=== PATIENT | male | born 2000 | race African-American/Black ===

== ENCOUNTER 2022-04-03 10:44 | Inpatient (IN) | payer OTHER ==
[2022-04-03 11:27] LABS: #Basophils 0.1 thou/uL (0.0-0.2); #Eosinphils 0.1 thou/uL (0.0-0.7); #Lymphocytes 2.2 thou/uL (1.20-3.40); #Monocytes 0.3 thou/uL (0.11-0.59); #Neutrophils 6.6 thou/uL (1.40-6.50); %Basophils 0.7 % (0.0-1.0); %Eosinophils 0.8 % (0.0-10.0); %Lymphocytes 23.8 % (21.0-51.0); %Monocytes 2.9 % (0.0-10.0); %Neutrophils 71.7 % (42.0-75.0); Hemoglobin 16.1 g/dL (14.0-18.0); Mean Corpuscular HGB CONC 33.1 g/dL (32.0-36.0); Mean Corpuscular Hemoglobin 29.6 pg (27.0-31.0); Mean Corpuscular Volume 89.4 fL (78.0-98.0); Mean Platelet Volume 9.5 fL (7.4-10.4); Platelet Count 217 thou/uL (130-400); RBC Distribution Width 12.2 % (11.5-14.5); Red Blood Cell (RBC) Count 5.44 mill/uL (4.70-6.10); White Blood Cell (WBC) Count 9.2 thou/uL (4.8-10.8)
[2022-04-03 11:44] LABS: Bilirubin Negative (Negative); Blood, Urine Negative (Negative); Clarity Clear (Clear); Glucose, Urine (Dipstick) Greater than 1000 mg/dL (Negative); Ketone, Urine Greater than 150 mg/dL (Negative); Leukocyte Negative Leu/uL (Negative); Nitrite Negative (Negative); Protein, Urine (Dipstick) Negative (Neg-Trace); Specific Gravity, Urine 1.037 (1.002-1.036); Urobilinogen Normal mg/dL (Less than 2); pH, Urine 5.5 (5.0-9.0)
[2022-04-03] MEDS ORDERED: Ondansetron PF 4 MG/2 ML Vial ONE (11:53)
[2022-04-03 12:10] LABS: Actual Bicarbonate (HCO3v) 18 mEq/L (22-28); Base Excess -5.7 mEq/L (-2.0 to +3.0); Chloride (VBG) 94 mmol/L (98-106); Hemoglobin (Hb) 16.9 g/dL (13.2-17.3); Potassium (VBG) 4.78 mmol/L (3.70-5.30); Sodium 132.1 mmol/L (133-146); pH (venous) 7.37 (7.32-7.43)
[2022-04-03 12:14] LABS: Lipase 14 U/L (8-78); Phosphorus 3.7 mg/dL (2.3-4.7)
[2022-04-03 12:17] LABS: ALT (SGPT) 37 U/L (8-55); AST (SGOT) 36 U/L (5-34); Albumin 4.2 g/dL (3.5-5.0); Alkaline Phosphatase 123 U/L (40-110); Anion Gap 30 mmol/L (10-20); BUN (Urea Nitrogen) 14 mg/dL (8.9-20.6); Bilirubin, Total 1.4 mg/dL (0.2-1.2); Calc. Creatinine Clearance 0 mL/min (70-130); Calcium 9.5 mg/dL (7.8-10.44); Carbon Dioxide 16 mmol/L (22-29); Chloride 91 mmol/L (98-107); Estimated GFR 57; Globulin 3.1 g/dL (2.4-3.5); Glucose 631 mg/dL (70-105); Magnesium 1.9 mg/dL (1.6-2.6); Potassium 5.3 mmol/L (3.5-5.1); Protein, Total 7.3 g/dL (6.0-8.3); Sodium 132 mmol/L (136-145)
[2022-04-03] MEDS ORDERED: Dextrose 5% in Water 1,000 ML IV PRN ×2 (13:00→17:30)
[2022-04-03] MEDS ORDERED: HUMULIN R 100 UNITS in Sodium Chloride 0.9% 99 ML IVPB SCH (13:00)
[2022-04-03] MEDS ORDERED: Dextrose 50% Abboject 50 ML SYRINGE IVP PRN (13:00)
[2022-04-03 15:38] LABS: Anion Gap 26 mmol/L (10-20); BUN (Urea Nitrogen) 13 mg/dL (8.9-20.6); Calc. Creatinine Clearance 0 mL/min (70-130); Calcium 8.9 mg/dL (7.8-10.44); Carbon Dioxide 15 mmol/L (22-29); Chloride 98 mmol/L (98-107); Estimated GFR 71; Glucose 444 mg/dL (70-105); Potassium 4.2 mmol/L (3.5-5.1); Sodium 135 mmol/L (136-145)
[2022-04-03 17:19] VITALS: BMI 26.6
[2022-04-03] MEDS ORDERED: HUMULIN R 100 UNITS in Sodium Chloride 0.9% 100 ML IVPB SCH ×2 (17:30→17:45)
[2022-04-03] MEDS ORDERED: NS 0.9% w/ 20 MEQ KCL 1,000 ML/1,000 ML BAG IV PRN ×2 (17:30)
[2022-04-03] MEDS ORDERED: Dextrose 5 %-0.45 % NaCl 1,000 ML IV PRN ×2 (17:30→17:39)
[2022-04-03] MEDS ORDERED: Dextrose 50% Abboject 50 ML SYRINGE SLOW IVP PRN ×2 (17:30→17:45)
[2022-04-03] MEDS ORDERED: D5 1/2 NS w/20 mEq KCL 1,000 ML IV PRN ×2 (17:30→17:39)
[2022-04-03] MEDS ORDERED: Sodium Chloride 0.9% 1,000 ML IV PRN ×8 (17:30→17:39)
[2022-04-03] MEDS ORDERED: Electrolyte Replacement Protocol FS PRN ×2 (17:34→19:15)
[2022-04-03] MEDS ORDERED: NS 0.9% w/ 20 MEQ KCL 1,000 ML IV PRN ×2 (17:39)
[2022-04-03] MEDS ORDERED: Acetaminophen 325 MG TAB PO PRN (17:39)
[2022-04-03] MEDS ORDERED: Ondansetron ODT 4 MG TAB PO PRN (17:39)
[2022-04-03] MEDS ORDERED: Ondansetron PF 4 MG/2 ML Vial IVP PRN (17:39)
[2022-04-03] MEDS ORDERED: Electrolyte Replacement Protocol IVPB PRN (17:39)
[2022-04-03] MEDS ORDERED: NS 0.9% w/ 20 MEQ KCL 1,000 ML ONE (18:06)
[2022-04-03 19:06] LABS: Anion Gap 16 mmol/L (10-20); BUN (Urea Nitrogen) 13 mg/dL (8.9-20.6); Calc. Creatinine Clearance 100 mL/min (70-130); Calcium 8.5 mg/dL (7.8-10.44); Carbon Dioxide 23 mmol/L (22-29); Chloride 103 mmol/L (98-107); Estimated GFR 83; Glucose 272 mg/dL (70-105); Potassium 3.8 mmol/L (3.5-5.1); Sodium 138 mmol/L (136-145)
[2022-04-03] MEDS ORDERED: Potassium Chloride 20 MEQ TAB PO SCH (19:15)
[2022-04-03] MEDS ORDERED: Magnesium 2 GM/50 ML(in water) 2 GM in Premix Bag 1 BAG IVPB SCH (19:15)
[2022-04-03] MEDS ORDERED: Potassium Chloride 20 MEQ TAB ONE (19:51)
[2022-04-03] MEDS ORDERED: Insulin Glargine 30 UNITS/0.3 ML VIAL SC SCH (21:00)
[2022-04-03 22:23] LABS: Anion Gap 12 mmol/L (10-20); BUN (Urea Nitrogen) 12 mg/dL (8.9-20.6); Calc. Creatinine Clearance 111 mL/min (70-130); Calcium 8.4 mg/dL (7.8-10.44); Carbon Dioxide 25 mmol/L (22-29); Chloride 106 mmol/L (98-107); Estimated GFR 94; Glucose 142 mg/dL (70-105); Potassium 3.9 mmol/L (3.5-5.1); Sodium 139 mmol/L (136-145)
[2022-04-04] MEDS ORDERED: Dextrose 50% Abboject 50 ML SYRINGE IVP PRN (00:15)
[2022-04-04] MEDS ORDERED: Dextrose 5% in Water 1,000 ML IV PRN (00:15)
[2022-04-04] MEDS ORDERED: HumaLOG 300 UNITS/3 ML VIAL SC PRN (00:15)
[2022-04-04 01:46] LABS: Anion Gap 15 mmol/L (10-20); BUN (Urea Nitrogen) 11 mg/dL (8.9-20.6); Calc. Creatinine Clearance 110 mL/min (70-130); Calcium 8.7 mg/dL (7.8-10.44); Carbon Dioxide 19 mmol/L (22-29); Chloride 106 mmol/L (98-107); Estimated GFR 93; Glucose 133 mg/dL (70-105); Potassium 4.2 mmol/L (3.5-5.1); Sodium 136 mmol/L (136-145)
[2022-04-04] MEDS: HumaLOG 300 UNITS/3 ML VIAL SC PRN ×2 (06:16→12:25)
[2022-04-04 07:05] LABS: #Eosinphils 0.4 thou/uL (0.0-0.7); #Lymphocytes 3.1 thou/uL (1.20-3.40); #Monocytes 0.3 thou/uL (0.11-0.59); %Basophils 0.5 % (0.0-1.0); %Eosinophils 4.8 % (0.0-10.0); %Lymphocytes 35.3 % (21.0-51.0); %Monocytes 3.4 % (0.0-10.0); %Neutrophils 56.1 % (42.0-75.0); Hemoglobin 14.7 g/dL (14.0-18.0); Mean Corpuscular HGB CONC 31.9 g/dL (32.0-36.0); Mean Corpuscular Hemoglobin 28.7 pg (27.0-31.0); Mean Corpuscular Volume 90.2 fL (78.0-98.0); Mean Platelet Volume 9.3 fL (7.4-10.4); Platelet Count 203 thou/uL (130-400); RBC Distribution Width 12.3 % (11.5-14.5); White Blood Cell (WBC) Count 8.8 thou/uL (4.8-10.8)
[2022-04-04 07:28] LABS: Anion Gap 13 mmol/L (10-20); BUN (Urea Nitrogen) 13 mg/dL (8.9-20.6); Calc. Creatinine Clearance 99 mL/min (70-130); Calcium 8.7 mg/dL (7.8-10.44); Carbon Dioxide 24 mmol/L (22-29); Chloride 101 mmol/L (98-107); Estimated GFR 81; Glucose 419 mg/dL (70-105); Magnesium 1.9 mg/dL (1.6-2.6); Potassium 4.2 mmol/L (3.5-5.1); Sodium 134 mmol/L (136-145)
[2022-04-04] MEDS ORDERED: Magnesium 2 GM/50 ML(in water) 2 GM in Premix Bag 1 BAG IVPB SCH (09:45)
[2022-04-04] MEDS ORDERED: Insulin Glargine 30 UNITS/0.3 ML VIAL SC SCH (16:52)
[2022-04-04] MEDS: HumaLOG 300 UNITS/3 ML VIAL SC SCH (17:31)
[2022-04-04] MEDS ORDERED: Mag-Al 1200 mg/1200 mg/30 ML UDCUP PO PRN (23:40)
[2022-04-05 01:15] LABS: Troponin I Less than 0.010 ng/mL (< 0.028)
[2022-04-05 04:31] LABS: Anion Gap 12 mmol/L (10-20); BUN (Urea Nitrogen) 11 mg/dL (8.9-20.6); Calc. Creatinine Clearance 133 mL/min (70-130); Calcium 8.8 mg/dL (7.8-10.44); Carbon Dioxide 27 mmol/L (22-29); Chloride 102 mmol/L (98-107); Estimated GFR 117; Glucose 179 mg/dL (70-105); Magnesium 1.9 mg/dL (1.6-2.6); Potassium 3.1 mmol/L (3.5-5.1); Sodium 138 mmol/L (136-145); Troponin I Less than 0.010 ng/mL (< 0.028)
[2022-04-05 06:44] LABS: Troponin I 0.011 ng/mL (< 0.028)
[2022-04-05 07:25] VITALS: BP 114/72; TEMP 97.9
[2022-04-05] MEDS: HumaLOG 300 UNITS/3 ML VIAL SC SCH ×2 (07:47→11:53)
[2022-04-05] MEDS ORDERED: Magnesium 2 GM/50 ML(in water) 2 GM in Premix Bag 1 BAG IVPB SCH (08:00)
[2022-04-05] MEDS ORDERED: Potassium Chloride 20 MEQ in Premix Bag 1 BAG IVPB SCH ×3 (08:00→09:15)
[2022-04-05] MEDS ORDERED: Potassium Chloride 20 MEQ TAB PO SCH (08:00)
[2022-04-05 12:19] LABS: Anion Gap 10 mmol/L (10-20); BUN (Urea Nitrogen) 9 mg/dL (8.9-20.6); Calc. Creatinine Clearance 133 mL/min (70-130); Calcium 8.7 mg/dL (7.8-10.44); Carbon Dioxide 29 mmol/L (22-29); Chloride 103 mmol/L (98-107); Estimated GFR 117; Glucose 183 mg/dL (70-105); Potassium 3.6 mmol/L (3.5-5.1); Sodium 138 mmol/L (136-145)
[2022-04-05 14:10] LABS: Potassium 3.7 mmol/L (3.5-5.1)
== END 2022-04-05 13:55 | disposition home or self-care (01) | DRG 639 ==
LOC: ERS 10:44 → ERHOLD 13:21 → T4-B 04-04 00:15
PROVIDERS: ADMIT Internal Medicine; ATTEND Internal Medicine
DX: E10.10 Type 1 diabetes mellitus with ketoacidosis without coma (principal); J45.909 Unspecified asthma, uncomplicated; F20.9 Schizophrenia, unspecified; F31.9 Bipolar disorder, unspecified; Z79.4 Long term (current) use of insulin; Z79.899 Other long term (current) drug therapy
CPT/HCPCS: 36415; 36416; 80048; 80053; 81003; 82010; 82805; 83690; 83735; 84100; 84484; 85025; 93005; 93010; 94760; 96361; 96374; 96375; J1815; J2405; J3475; J3480; J3490; U0003; U0005

== ENCOUNTER 2022-04-21 10:18 | Inpatient (IN) | payer OTHER ==
[2022-04-21 11:07] LABS: Base Excess -19.5 mEq/L (-2.0 to +3.0); Calcium, Ionized (venous) 1.09 mmol/L (1.16-1.32); Chloride (VBG) 99 mmol/L (98-106); Hemoglobin (Hb) 17.1 g/dL (13.2-17.3); Potassium (VBG) 5.82 mmol/L (3.70-5.30); Sodium 133.9 mmol/L (133-146)
[2022-04-21] MEDS ORDERED: Ondansetron PF 4 MG/2 ML Vial ONE (11:07)
[2022-04-21] MEDS ORDERED: Insulin Regular 300 UNITS/3 ML VIAL ONE (11:07)
[2022-04-21 11:08] LABS: Actual Bicarbonate (HCO3v) 8 mEq/L (22-28); pH (venous) 7.12 (7.32-7.43)
[2022-04-21 11:18] LABS: #Basophils 0.1 thou/uL (0.0-0.2); #Lymphocytes 2.7 thou/uL (1.20-3.40); #Monocytes 0.7 thou/uL (0.11-0.59); #Neutrophils 11.5 thou/uL (1.40-6.50); %Basophils 0.6 % (0.0-1.0); %Eosinophils 0.2 % (0.0-10.0); %Lymphocytes 17.9 % (21.0-51.0); %Monocytes 4.4 % (0.0-10.0); %Neutrophils 76.8 % (42.0-75.0); Hemoglobin 16.8 g/dL (14.0-18.0); Mean Corpuscular HGB CONC 32.6 g/dL (32.0-36.0); Mean Corpuscular Hemoglobin 29.7 pg (27.0-31.0); Mean Corpuscular Volume 91.3 fL (78.0-98.0); Mean Platelet Volume 9.4 fL (7.4-10.4); Platelet Count 280 thou/uL (130-400); RBC Distribution Width 12.6 % (11.5-14.5); Red Blood Cell (RBC) Count 5.66 mill/uL (4.70-6.10)
[2022-04-21 11:21] LABS: Bilirubin Negative (Negative); Blood, Urine Negative (Negative); Clarity Clear (Clear); Glucose, Urine (Dipstick) Greater than 1000 mg/dL (Negative); Ketone, Urine Greater than 150 mg/dL (Negative); Leukocyte Negative Leu/uL (Negative); Nitrite Negative (Negative); Protein, Urine (Dipstick) Negative (Neg-Trace); Specific Gravity, Urine 1.028 (1.002-1.036); Urobilinogen Normal mg/dL (Less than 2)
[2022-04-21 12:05] LABS: Magnesium 2.2 mg/dL (1.6-2.6)
[2022-04-21] MEDS ORDERED: INSULIN REGULAR IN 0.9 % NACL 100 UNIT/100 ML BAG ONE (12:08)
[2022-04-21] MEDS ORDERED: HUMULIN R 100 UNITS in Sodium Chloride 0.9% 100 ML IVPB SCH ×2 (12:15→13:30)
[2022-04-21 12:42] LABS: Albumin 4.5 g/dL (3.5-5.0)
[2022-04-21 12:43] LABS: Chloride 95 mmol/L (98-107); Potassium 6.2 mmol/L (3.5-5.1); Sodium 135 mmol/L (136-145)
[2022-04-21 12:44] LABS: Calcium 9.6 mg/dL (7.8-10.44)
[2022-04-21 12:45] LABS: Protein, Total 8.5 g/dL (6.0-8.3)
[2022-04-21 12:46] LABS: Anion Gap 38 mmol/L (10-20); Bilirubin, Total 1.1 mg/dL (0.2-1.2)
[2022-04-21 12:48] LABS: Alkaline Phosphatase 128 U/L (40-110); Calc. Creatinine Clearance 0 mL/min (70-130); Estimated GFR 39
[2022-04-21 12:49] LABS: BUN (Urea Nitrogen) 19 mg/dL (8.9-20.6)
[2022-04-21 12:50] LABS: AST (SGOT) 32 U/L (5-34)
[2022-04-21 12:51] LABS: ALT (SGPT) 47 U/L (8-55)
[2022-04-21 12:55] LABS: Carbon Dioxide 8 mmol/L (22-29); Glucose 688 mg/dL (70-105)
[2022-04-21] MEDS ORDERED: NS 0.9% w/ 20 MEQ KCL 1,000 ML IV PRN ×2 (13:22)
[2022-04-21] MEDS ORDERED: Sodium Chloride 0.9% 1,000 ML IV PRN ×4 (13:22)
[2022-04-21] MEDS ORDERED: Electrolyte Replacement Protocol 1 EACH IVPB SCH (13:22)
[2022-04-21] MEDS ORDERED: Dextrose 5 %-0.45 % NaCl 1,000 ML IV PRN (13:22)
[2022-04-21] MEDS ORDERED: Ondansetron ODT 4 MG TAB PO PRN (13:28)
[2022-04-21 15:20] LABS: Anion Gap 29 mmol/L (10-20); BUN (Urea Nitrogen) 15 mg/dL (8.9-20.6); Calc. Creatinine Clearance 0 mL/min (70-130); Calcium 8.3 mg/dL (7.8-10.44); Chloride 104 mmol/L (98-107); Estimated GFR 54; Glucose 359 mg/dL (70-105); Potassium 4.5 mmol/L (3.5-5.1); Sodium 137 mmol/L (136-145)
[2022-04-21 15:22] LABS: Troponin I Less than 0.010 ng/mL (< 0.028)
[2022-04-21 15:26] LABS: Carbon Dioxide 9 mmol/L (22-29)
[2022-04-21] MEDS: Heparin 5,000 UNITS/ML VIAL SC SCH ×2 (17:44→20:15)
[2022-04-21 17:47] LABS: Anion Gap 24 mmol/L (10-20); BUN (Urea Nitrogen) 15 mg/dL (8.9-20.6); Calc. Creatinine Clearance 66 mL/min (70-130); Calcium 8.4 mg/dL (7.8-10.44); Carbon Dioxide 11 mmol/L (22-29); Chloride 108 mmol/L (98-107); Estimated GFR 59; Glucose 232 mg/dL (70-105); Potassium 4.6 mmol/L (3.5-5.1); Sodium 138 mmol/L (136-145)
[2022-04-21 17:53] LABS: Troponin I Less than 0.010 ng/mL (< 0.028)
[2022-04-21] MEDS: D5 1/2 NS w/20 mEq KCL 1,000 ML IV PRN ×2 (20:16→22:56)
[2022-04-21 21:55] LABS: Anion Gap 13 mmol/L (10-20); BUN (Urea Nitrogen) 12 mg/dL (8.9-20.6); Calc. Creatinine Clearance 73 mL/min (70-130); Calcium 8.2 mg/dL (7.8-10.44); Carbon Dioxide 20 mmol/L (22-29); Chloride 109 mmol/L (98-107); Estimated GFR 67; Glucose 176 mg/dL (70-105); Potassium 3.7 mmol/L (3.5-5.1); Sodium 138 mmol/L (136-145)
[2022-04-22] MEDS: D5 1/2 NS w/20 mEq KCL 1,000 ML IV PRN (02:48)
[2022-04-22 04:25] LABS: Anion Gap 11 mmol/L (10-20); BUN (Urea Nitrogen) 12 mg/dL (8.9-20.6); Calc. Creatinine Clearance 82 mL/min (70-130); Calcium 8.3 mg/dL (7.8-10.44); Carbon Dioxide 19 mmol/L (22-29); Chloride 111 mmol/L (98-107); Estimated GFR 77; Glucose 159 mg/dL (70-105); Potassium 3.6 mmol/L (3.5-5.1); Sodium 137 mmol/L (136-145)
[2022-04-22 04:31] LABS: Magnesium 1.9 mg/dL (1.6-2.6); Phosphorus 2.1 mg/dL (2.3-4.7)
[2022-04-22] MEDS: Heparin 5,000 UNITS/ML VIAL SC SCH ×3 (07:52→21:22)
[2022-04-22] MEDS ORDERED: Magnesium 2 GM/50 ML(in water) 2 GM in Premix Bag 1 BAG IVPB SCH (08:00)
[2022-04-22] MEDS: Aripiprazole 2 MG TAB PO SCH (08:18)
[2022-04-22] MEDS ORDERED: Insulin Regular 300 UNITS/3 ML VIAL SC PRN (08:36)
[2022-04-22] MEDS ORDERED: Dextrose 5% in Water 1,000 ML IV PRN (08:36)
[2022-04-22] MEDS ORDERED: Dextrose 50% Abboject 50 ML SYRINGE SLOW IVP PRN (08:36)
[2022-04-22] MEDS ORDERED: Sodium Phosphate 30 MMOL in Sodium Chloride 0.9% 250 ML 250 ML IVPB SCH (08:45)
[2022-04-22] MEDS: Insulin Glargine 30 UNITS/0.3 ML VIAL SC SCH (08:57)
[2022-04-22] MEDS ORDERED: Sodium Phosphate 15 MMOL in Sodium Chloride 0.9% 250 ML 250 ML IVPB SCH (09:00)
[2022-04-22] MEDS: HumaLOG 300 UNITS/3 ML VIAL SC SCH ×2 (12:06→16:58)
[2022-04-22] MEDS: Insulin Regular 300 UNITS/3 ML VIAL SC PRN ×2 (12:07→16:58)
[2022-04-22 14:59] VITALS: BMI 24.3
[2022-04-23] MEDS: Insulin Regular 300 UNITS/3 ML VIAL SC PRN ×2 (05:57→12:18)
[2022-04-23 06:40] LABS: #Basophils 0.1 thou/uL (0.0-0.2); #Eosinphils 0.2 thou/uL (0.0-0.7); #Lymphocytes 3.1 thou/uL (1.20-3.40); #Monocytes 0.3 thou/uL (0.11-0.59); %Basophils 1.1 % (0.0-1.0); %Eosinophils 3.1 % (0.0-10.0); %Lymphocytes 46.7 % (21.0-51.0); %Monocytes 4.5 % (0.0-10.0); %Neutrophils 44.6 % (42.0-75.0); Mean Corpuscular HGB CONC 33.3 g/dL (32.0-36.0); Mean Corpuscular Hemoglobin 29.3 pg (27.0-31.0); Mean Platelet Volume 8.7 fL (7.4-10.4); Platelet Count 231 thou/uL (130-400); RBC Distribution Width 12.4 % (11.5-14.5); Red Blood Cell (RBC) Count 4.78 mill/uL (4.70-6.10); White Blood Cell (WBC) Count 6.7 thou/uL (4.8-10.8)
[2022-04-23 06:47] LABS: Anion Gap 11 mmol/L (10-20); BUN (Urea Nitrogen) 11 mg/dL (8.9-20.6); Calc. Creatinine Clearance 116 mL/min (70-130); Calcium 8.2 mg/dL (7.8-10.44); Carbon Dioxide 24 mmol/L (22-29); Chloride 103 mmol/L (98-107); Estimated GFR 110; Glucose 228 mg/dL (70-105); Magnesium 1.7 mg/dL (1.6-2.6); Phosphorus 2.6 mg/dL (2.3-4.7); Potassium 3.1 mmol/L (3.5-5.1); Sodium 135 mmol/L (136-145)
[2022-04-23] MEDS ORDERED: Magnesium 2 GM/50 ML(in water) 2 GM in Premix Bag 1 BAG IVPB SCH (08:00)
[2022-04-23] MEDS ORDERED: Potassium Chloride 20 MEQ TAB PO SCH (08:00)
[2022-04-23 08:22] LABS: SARS-CoV-2 NAA Rapid Test Not Detected (NotDetected)
[2022-04-23] MEDS: Insulin Glargine 30 UNITS/0.3 ML VIAL SC SCH (09:10)
[2022-04-23] MEDS: HumaLOG 300 UNITS/3 ML VIAL SC SCH ×2 (09:15→12:14)
[2022-04-23] MEDS: Heparin 5,000 UNITS/ML VIAL SC SCH (09:16)
[2022-04-23 11:54] VITALS: TEMP 98
[2022-04-23] MEDS: Aripiprazole 2 MG TAB PO SCH (12:15)
[2022-04-23 15:17] VITALS: BP 130/70
== END 2022-04-23 16:30 | disposition home or self-care (01) | DRG 638 ==
LOC: ERS 10:18 → ERHOLD 13:31 → IMCU/EMU 16:31 → SURG B 04-22 17:48
PROVIDERS: ADMIT Family Medicine; ATTEND Family Medicine
DX: E10.10 Type 1 diabetes mellitus with ketoacidosis without coma (principal); N17.9 Acute kidney failure, unspecified; J45.909 Unspecified asthma, uncomplicated; E87.5 Hyperkalemia; F25.0 Schizoaffective disorder, bipolar type; E87.6 Hypokalemia; Z20.822 Contact with and (suspected) exposure to COVID-19; Z79.4 Long term (current) use of insulin; Z79.899 Other long term (current) drug therapy
CPT/HCPCS: 36415; 36416; 80048; 80053; 81003; 82010; 82805; 83735; 84100; 84484; 85025; 93005; 96361; 96365; 96366; 96375; 96376; J1644; J1815; J2405; J3475; J3480; J3490; J7050; U0002

== ENCOUNTER 2022-05-06 11:28 | Inpatient (IN) | payer OTHER ==
[2022-05-06] MEDS ORDERED: Insulin Regular 300 UNITS/3 ML VIAL ONE (11:50)
[2022-05-06] MEDS ORDERED: Ondansetron PF 4 MG/2 ML Vial ONE (11:50)
[2022-05-06] MEDS ORDERED: INSULIN REGULAR IN 0.9 % NACL 100 UNIT/100 ML BAG ONE (11:50)
[2022-05-06 12:09] LABS: Bilirubin Negative (Negative); Blood, Urine Negative (Negative); Clarity Clear (Clear); Glucose, Urine (Dipstick) Greater than 1000 mg/dL (Negative); Ketone, Urine Greater than 150 mg/dL (Negative); Leukocyte Negative Leu/uL (Negative); Nitrite Negative (Negative); Protein, Urine (Dipstick) 20 mg/dL (Neg-Trace); Specific Gravity, Urine 1.024 (1.002-1.036); Urobilinogen Normal mg/dL (Less than 2)
[2022-05-06 12:09] LABS: Hemoglobin 17.4 g/dL (14.0-18.0); Mean Corpuscular HGB CONC 30.9 g/dL (32.0-36.0); Mean Platelet Volume 8.4 fL (7.4-10.4); Platelet Count 420 thou/uL (130-400); Red Blood Cell (RBC) Count 5.82 mill/uL (4.70-6.10); White Blood Cell (WBC) Count 39.4 thou/uL (4.8-10.8)
[2022-05-06 12:19] LABS: INR-International Normal Ratio 1.1; Prothrombin Time 14.4 sec (12.0-14.7)
[2022-05-06 12:20] LABS: PTT 23.7 sec (22.9-36.1)
[2022-05-06 12:28] LABS: Band 11 % (5-11); Lymphocytes 9 % (21-51); MDiff Complete? YES; Metamyelocyte 3 % (0-0); Monocytes 4 % (0-10); Myelocyte 2 % (0-0); Neutrophil 71 % (42-75); Platelet Morphology Comment Appears Increased; RBC Morphology Normal
[2022-05-06 12:43] LABS: ALT (SGPT) 239 U/L (8-55); AST (SGOT) 196 U/L (5-34); Albumin 4.7 g/dL (3.5-5.0); Alkaline Phosphatase 198 U/L (40-110); BUN (Urea Nitrogen) 21 mg/dL (8.9-20.6); Bilirubin, Total 1.2 mg/dL (0.2-1.2); Calc. Creatinine Clearance 0 mL/min (70-130); Calcium 9.9 mg/dL (7.8-10.44); Chloride 91 mmol/L (98-107); Estimated GFR 39; Magnesium 2.5 mg/dL (1.6-2.6); Potassium 6.3 mmol/L (3.5-5.1); Protein, Total 8.7 g/dL (6.0-8.3); Sodium 135 mmol/L (136-145)
[2022-05-06 12:46] LABS: Carbon Dioxide Less than 8 mmol/L (22-29); Glucose 769 mg/dL (70-105)
[2022-05-06 13:23] LABS: Base Excess -27.4 mEq/L (-2.0 to +3.0); Calcium, Ionized (venous) 1.09 mmol/L (1.16-1.32); Chloride (VBG) 95 mmol/L (98-106); Hemoglobin (Hb) 18.5 g/dL (13.2-17.3); Potassium (VBG) 6.37 mmol/L (3.70-5.30); Sodium 136.9 mmol/L (133-146)
[2022-05-06 13:24] LABS: Actual Bicarbonate (HCO3v) 4 mEq/L (22-28); pH (venous) 6.92 (7.32-7.43)
[2022-05-06 15:01] LABS: Lactic Acid 9.5 mmol/L (0.5-2.2)
[2022-05-06] MEDS ORDERED: Electrolyte Replacement Protocol 1 EACH IVPB SCH (15:21)
[2022-05-06] MEDS ORDERED: Sodium Chloride 0.9% 1,000 ML IV PRN ×4 (15:21)
[2022-05-06] MEDS ORDERED: NS 0.9% w/ 20 MEQ KCL 1,000 ML IV PRN ×2 (15:21)
[2022-05-06] MEDS ORDERED: Dextrose 5 %-0.45 % NaCl 1,000 ML IV PRN (15:21)
[2022-05-06] MEDS ORDERED: HUMULIN R 100 UNITS in Sodium Chloride 0.9% 100 ML IVPB SCH (15:30)
[2022-05-06] MEDS ORDERED: Sodium Bicarb 50 MEQ/50 ML VIAL ONE ×2 (15:47→15:48)
[2022-05-06 16:10] LABS: Actual Bicarbonate (HCO3a) 10.9 mEq/L (22-28); Analyzer IN Cardio ER; Base Excess (BEa) -12.2 mEq/L (-2.0 to +3.0); Calcium, Ionized (arterial) 1.08 mmol/L (1.12-1.30); Carboxyhemoglobin (COHb) 0.2 gm% (0.0-3.0); Hemoglobin (Hb) 14.5 g/dL (14.0-18.0); O2 Tension (PaO2), arterial 95.6 mmHg (80.0-100.0); Potassium - ABG Lab 3.94 mmol/L (3.70-5.30); pH, Arterial 7.35 (7.35-7.45)
[2022-05-06 16:12] LABS: CO2 Tension 20.2 mmHg (35.0-45.0); Puncture Site RRA
[2022-05-06] MEDS ORDERED: Albuterol Sulfate 2.5 mg/3 ml Neb NEB PRN (16:42)
[2022-05-06] MEDS ORDERED: Ondansetron PF 4 MG/2 ML Vial IVP PRN (17:25)
[2022-05-06] MEDS ORDERED: Pantoprazole 40 MG VIAL IVP SCH (17:30)
[2022-05-06 18:04] LABS: Anion Gap 28 mmol/L (10-20); BUN (Urea Nitrogen) 17 mg/dL (8.9-20.6); Calc. Creatinine Clearance 0 mL/min (70-130); Carbon Dioxide 11 mmol/L (22-29); Chloride 106 mmol/L (98-107); Estimated GFR 60; Glucose 243 mg/dL (70-105); Magnesium 2.1 mg/dL (1.6-2.6); Phosphorus 2.7 mg/dL (2.3-4.7); Potassium 4.5 mmol/L (3.5-5.1); Sodium 140 mmol/L (136-145)
[2022-05-06] MEDS: D5 1/2 NS w/20 mEq KCL 1,000 ML IV PRN ×2 (18:12→21:15)
[2022-05-06 18:40] VITALS: BMI 22.4
[2022-05-06 20:04] LABS: Anion Gap 21 mmol/L (10-20); BUN (Urea Nitrogen) 15 mg/dL (8.9-20.6); Calc. Creatinine Clearance 70 mL/min (70-130); Calcium 7.7 mg/dL (7.8-10.44); Carbon Dioxide 15 mmol/L (22-29); Chloride 108 mmol/L (98-107); Estimated GFR 66; Glucose 186 mg/dL (70-105); Potassium 4.1 mmol/L (3.5-5.1); Sodium 140 mmol/L (136-145)
[2022-05-06 21:22] LABS: Lactic Acid 3.8 mmol/L (0.5-2.2)
[2022-05-07 00:17] LABS: Anion Gap 11 mmol/L (10-20); BUN (Urea Nitrogen) 12 mg/dL (8.9-20.6); Calc. Creatinine Clearance 84 mL/min (70-130); Calcium 7.9 mg/dL (7.8-10.44); Carbon Dioxide 22 mmol/L (22-29); Chloride 109 mmol/L (98-107); Estimated GFR 82; Glucose 124 mg/dL (70-105); Potassium 3.4 mmol/L (3.5-5.1); Sodium 139 mmol/L (136-145)
[2022-05-07] MEDS ORDERED: Potassium Chloride 20 MEQ TAB PO SCH (01:15)
[2022-05-07] MEDS: D5 1/2 NS w/20 mEq KCL 1,000 ML IV PRN (01:19)
[2022-05-07] MEDS ORDERED: Insulin Glargine 30 UNITS/0.3 ML VIAL SC SCH ×2 (02:31→02:45)
[2022-05-07] MEDS ORDERED: HumaLOG 300 UNITS/3 ML VIAL SC PRN (02:32)
[2022-05-07] MEDS ORDERED: Dextrose 50% Abboject 50 ML SYRINGE SLOW IVP PRN (02:32)
[2022-05-07] MEDS ORDERED: Dextrose 5% in Water 1,000 ML IV PRN (02:32)
[2022-05-07 03:36] LABS: Lactic Acid 3.7 mmol/L (0.5-2.2)
[2022-05-07 03:41] LABS: Anion Gap 16 mmol/L (10-20); BUN (Urea Nitrogen) 11 mg/dL (8.9-20.6); Calc. Creatinine Clearance 80 mL/min (70-130); Calcium 7.8 mg/dL (7.8-10.44); Carbon Dioxide 16 mmol/L (22-29); Chloride 108 mmol/L (98-107); Estimated GFR 78; Glucose 224 mg/dL (70-105); Magnesium 1.9 mg/dL (1.6-2.6); Potassium 3.8 mmol/L (3.5-5.1); Sodium 136 mmol/L (136-145)
[2022-05-07 03:43] LABS: Phosphorus 2.1 mg/dL (2.3-4.7)
[2022-05-07 03:44] LABS: ALT (SGPT) 126 U/L (8-55); AST (SGOT) 75 U/L (5-34); Albumin 2.9 g/dL (3.5-5.0); Alkaline Phosphatase 95 U/L (40-110); Bilirubin, Direct 0.3 mg/dL (0.1-0.3); Bilirubin, Total 0.9 mg/dL (0.2-1.2); Protein, Total 5.1 g/dL (6.0-8.3)
[2022-05-07] MEDS: Insulin Glargine 30 UNITS/0.3 ML VIAL SC SCH (07:40)
[2022-05-07 09:30] LABS: #Eosinphils 0.1 thou/uL (0.0-0.7); #Lymphocytes 1.9 thou/uL (1.20-3.40); #Monocytes 0.8 thou/uL (0.11-0.59); #Neutrophils 11.9 thou/uL (1.40-6.50); %Basophils 0.2 % (0.0-1.0); %Eosinophils 0.4 % (0.0-10.0); %Lymphocytes 12.9 % (21.0-51.0); %Monocytes 5.2 % (0.0-10.0); %Neutrophils 81.3 % (42.0-75.0)
[2022-05-07] MEDS: Benztropine 1 MG TAB PO SCH (09:30)
[2022-05-07] MEDS: Aripiprazole 2 MG TAB PO SCH (09:30)
[2022-05-07 09:31] LABS: Hemoglobin 13.1 g/dL (14.0-18.0); Mean Corpuscular HGB CONC 32.2 g/dL (32.0-36.0); Mean Corpuscular Hemoglobin 29.3 pg (27.0-31.0); Mean Corpuscular Volume 91.2 fL (78.0-98.0); Mean Platelet Volume 7.8 fL (7.4-10.4); Platelet Count 256 thou/uL (130-400); RBC Distribution Width 13.8 % (11.5-14.5); Red Blood Cell (RBC) Count 4.47 mill/uL (4.70-6.10); White Blood Cell (WBC) Count 14.7 thou/uL (4.8-10.8)
[2022-05-07] MEDS: HumaLOG 300 UNITS/3 ML VIAL SC PRN ×2 (12:08→17:04)
[2022-05-08 04:01] LABS: #Eosinphils 0.1 thou/uL (0.0-0.7); #Lymphocytes 3.1 thou/uL (1.20-3.40); #Monocytes 0.2 thou/uL (0.11-0.59); #Neutrophils 3.9 thou/uL (1.40-6.50); %Basophils 0.5 % (0.0-1.0); %Eosinophils 0.9 % (0.0-10.0); %Lymphocytes 42.9 % (21.0-51.0); %Monocytes 2.1 % (0.0-10.0); %Neutrophils 53.5 % (42.0-75.0); Hemoglobin 12.6 g/dL (14.0-18.0); Mean Corpuscular HGB CONC 34.1 g/dL (32.0-36.0); Mean Corpuscular Hemoglobin 30.6 pg (27.0-31.0); Mean Corpuscular Volume 89.9 fL (78.0-98.0); Mean Platelet Volume 7.5 fL (7.4-10.4); Platelet Count 187 thou/uL (130-400); RBC Distribution Width 13.5 % (11.5-14.5); Red Blood Cell (RBC) Count 4.13 mill/uL (4.70-6.10); White Blood Cell (WBC) Count 7.3 thou/uL (4.8-10.8)
[2022-05-08 04:23] LABS: ALT (SGPT) 444 U/L (8-55); AST (SGOT) 1384 U/L (5-34); Albumin 2.9 g/dL (3.5-5.0); Alkaline Phosphatase 120 U/L (40-110); Anion Gap 13 mmol/L (10-20); BUN (Urea Nitrogen) 9 mg/dL (8.9-20.6); Bilirubin, Total 1.4 mg/dL (0.2-1.2); Calc. Creatinine Clearance 130 mL/min (70-130); Carbon Dioxide 24 mmol/L (22-29); Chloride 105 mmol/L (98-107); Estimated GFR 124; Globulin 2.2 g/dL (2.4-3.5); Glucose 101 mg/dL (70-105); Protein, Total 5.1 g/dL (6.0-8.3); Sodium 139 mmol/L (136-145)
[2022-05-08 04:27] LABS: Potassium 2.9 mmol/L (3.5-5.1)
[2022-05-08 05:37] LABS: Magnesium 1.7 mg/dL (1.6-2.6)
[2022-05-08] MEDS: Potassium Chloride 20 MEQ TAB PO SCH ×2 (06:17→09:17)
[2022-05-08] MEDS ORDERED: Magnesium 2 GM/50 ML(in water) 2 GM in Premix Bag 1 BAG IVPB SCH (08:00)
[2022-05-08] MEDS: Aripiprazole 2 MG TAB PO SCH (09:15)
[2022-05-08] MEDS: Benztropine 1 MG TAB PO SCH (09:15)
[2022-05-08] MEDS: Insulin Glargine 30 UNITS/0.3 ML VIAL SC SCH (09:16)
[2022-05-08 19:57] LABS: Anion Gap 15 mmol/L (10-20); BUN (Urea Nitrogen) 8 mg/dL (8.9-20.6); Calc. Creatinine Clearance 140 mL/min (70-130); Calcium 8.1 mg/dL (7.8-10.44); Carbon Dioxide 26 mmol/L (22-29); Chloride 100 mmol/L (98-107); Estimated GFR 127; Glucose 211 mg/dL (70-105); Potassium 3.6 mmol/L (3.5-5.1); Sodium 137 mmol/L (136-145)
[2022-05-08] MEDS: HumaLOG 300 UNITS/3 ML VIAL SC PRN (22:44)
[2022-05-09 07:19] LABS: Anion Gap 13 mmol/L (10-20); BUN (Urea Nitrogen) 7 mg/dL (8.9-20.6); Calc. Creatinine Clearance 157 mL/min (70-130); Carbon Dioxide 25 mmol/L (22-29); Chloride 102 mmol/L (98-107); Estimated GFR 132; Glucose 122 mg/dL (70-105); Magnesium 1.9 mg/dL (1.6-2.6); Potassium 3.1 mmol/L (3.5-5.1); Sodium 137 mmol/L (136-145)
[2022-05-09] MEDS ORDERED: Magnesium 2 GM/50 ML(in water) 2 GM in Premix Bag 1 BAG IVPB SCH (08:00)
[2022-05-09] MEDS ORDERED: Potassium Chloride 20 MEQ TAB PO SCH (08:00)
[2022-05-09] MEDS: Benztropine 1 MG TAB PO SCH (08:25)
[2022-05-09] MEDS: Aripiprazole 2 MG TAB PO SCH (08:26)
[2022-05-09] MEDS: Insulin Glargine 30 UNITS/0.3 ML VIAL SC SCH (08:27)
[2022-05-09 10:43] LABS: Acetaminophen Less than 10.0 mcg/mL (10.0-30.0); Alcohol Less than 10 mg/dL (Less than 10); Salicylate Less than 8.0 mg/dL (15.0-30.0)
[2022-05-09 10:53] LABS: AST (SGOT) 2096 U/L (5-34); Albumin 3.6 g/dL (3.5-5.0); Alkaline Phosphatase 244 U/L (40-110); Bilirubin, Direct 0.7 mg/dL (0.1-0.3); Bilirubin, Total 2.3 mg/dL (0.2-1.2); CK (CPK) 489 U/L (30-200); Protein, Total 6.6 g/dL (6.0-8.3)
[2022-05-09 10:54] LABS: ALT (SGPT) 965 U/L (8-55)
[2022-05-09 11:03] LABS: HBSAg Index 0.25 S/CO (0-0.99); Hep A IgM AB Non-Reactive (NonReactive); Hep B Surf Ag Non-Reactive S/CO (NonReactive); Hep C IgG Ab Non-Reactive (NonReactive); Hepatitis B Core IgM Abs Non-Reactive (NonReactive)
[2022-05-09 11:11] LABS: Amphetamine Not Detected (NotDetected); Barbiturates Screen Not Detected (NotDetected); Benzodiazepine Screen Not Detected (NotDetected); Cocaine Metabolite Screen Not Detected (NotDetected); Methadone Not Detected (NotDetected); Methamphetamine Not Detected (NotDetected); Opiate Screen Not Detected (NotDetected); Oxycodone Screen Not Detected (NotDetected); Phencyclidine (PCP) Not Detected (NotDetected); THC/Cannabinoid Screen Not Detected (NotDetected); Tricyclic Screen Not Detected (NotDetected)
[2022-05-10 06:54] LABS: ALT (SGPT) 683 U/L (8-55); AST (SGOT) 871 U/L (5-34); Alkaline Phosphatase 238 U/L (40-110); Anion Gap 14 mmol/L (10-20); BUN (Urea Nitrogen) 8 mg/dL (8.9-20.6); Bilirubin, Direct 0.5 mg/dL (0.1-0.3); Bilirubin, Total 1.3 mg/dL (0.2-1.2); Calc. Creatinine Clearance 145 mL/min (70-130); Calcium 8.7 mg/dL (7.8-10.44); Carbon Dioxide 23 mmol/L (22-29); Chloride 103 mmol/L (98-107); Estimated GFR 129; Glucose 175 mg/dL (70-105); Magnesium 1.8 mg/dL (1.6-2.6); Potassium 3.8 mmol/L (3.5-5.1); Protein, Total 5.7 g/dL (6.0-8.3); Sodium 136 mmol/L (136-145)
[2022-05-10 08:31] VITALS: BP 135/93; TEMP 98
[2022-05-10] MEDS ORDERED: Insulin Glargine 30 UNITS/0.3 ML VIAL SC SCH (09:00)
== END 2022-05-10 11:15 | disposition home or self-care (01) | DRG 638 ==
LOC: ERS 11:28 → ERHOLD 14:15 → CCU 16:28 → IMCU/EMU 21:07 → T4-B 05-08 22:31
PROVIDERS: ADMIT Internal Medicine; ATTEND Internal Medicine
DX: E10.10 Type 1 diabetes mellitus with ketoacidosis without coma (principal); N17.9 Acute kidney failure, unspecified; Z20.822 Contact with and (suspected) exposure to COVID-19; R79.89 Other specified abnormal findings of blood chemistry; F31.9 Bipolar disorder, unspecified; F20.9 Schizophrenia, unspecified; E87.5 Hyperkalemia; E83.39 Other disorders of phosphorus metabolism; J45.909 Unspecified asthma, uncomplicated; E86.0 Dehydration; Z59.00 Homelessness unspecified; Z79.4 Long term (current) use of insulin; Z79.899 Other long term (current) drug therapy; Z91.19 Patient's noncompliance with other medical treatment and regimen; Z83.3 Family history of diabetes mellitus; Z91.14 Patient's other noncompliance with medication regimen
CPT/HCPCS: 36415; 36416; 36600; 71045; 76700; 80048; 80053; 80074; 80076; 80306; 80307; 81003; 82010; 82550; 82805; 83605; 83690; 83735; 83880; 83930; 84100; 84484; 85025; 85610; 85730; 87040; 87086; 93005; 94760; 96361; 96365; 96366; 96375; 96376; C9113; J1815; J2405; J3475; J3480; U0003; U0005

== ENCOUNTER 2022-05-13 14:42 | Inpatient (IN) | payer OTHER ==
[2022-05-13 15:47] LABS: Analyzer IN Cardio ER; Base Excess -20.3 mEq/L (-2.0 to +3.0); Calcium, Ionized (venous) 1.21 mmol/L (1.16-1.32); Chloride (VBG) 107 mmol/L (98-106); Hemoglobin (Hb) 16.9 g/dL (13.2-17.3); Sodium 143.8 mmol/L (133-146)
[2022-05-13 15:50] LABS: Actual Bicarbonate (HCO3v) 7 mEq/L (22-28); pH (venous) 7.13 (7.32-7.43)
[2022-05-13 16:21] LABS: ALT (SGPT) 689 U/L (8-55); AST (SGOT) 384 U/L (5-34); Albumin 4.3 g/dL (3.5-5.0); Alkaline Phosphatase 416 U/L (40-110); BUN (Urea Nitrogen) 25 mg/dL (8.9-20.6); Bilirubin, Total 0.9 mg/dL (0.2-1.2); Calc. Creatinine Clearance 0 mL/min (70-130); Calcium 9.8 mg/dL (7.8-10.44); Chloride 106 mmol/L (98-107); Estimated GFR 53; Globulin 3.8 g/dL (2.4-3.5); Glucose 488 mg/dL (70-105); Potassium 5.3 mmol/L (3.5-5.1); Protein, Total 8.1 g/dL (6.0-8.3); Sodium 140 mmol/L (136-145)
[2022-05-13 16:26] LABS: Carbon Dioxide Less than 8 mmol/L (22-29)
[2022-05-13] MEDS ORDERED: Sodium Chloride 0.9% 1,000 ML IV PRN ×4 (17:01)
[2022-05-13] MEDS ORDERED: Ondansetron ODT 4 MG TAB PO PRN (17:01)
[2022-05-13] MEDS ORDERED: Dextrose 5 %-0.45 % NaCl 1,000 ML IV PRN (17:01)
[2022-05-13] MEDS ORDERED: Ondansetron PF 4 MG/2 ML Vial IVP PRN (17:01)
[2022-05-13] MEDS ORDERED: NS 0.9% w/ 20 MEQ KCL 1,000 ML IV PRN ×2 (17:01)
[2022-05-13] MEDS ORDERED: Senokot S 8.6-50 MG TAB PO PRN (17:01)
[2022-05-13] MEDS ORDERED: Electrolyte Replacement Protocol 1 EACH IVPB PRN (17:01)
[2022-05-13] MEDS ORDERED: Acetaminophen 325 MG TAB PO PRN (17:01)
[2022-05-13] MEDS ORDERED: HUMULIN R 100 UNITS in Sodium Chloride 0.9% 100 ML IVPB SCH (17:15)
[2022-05-13] MEDS ORDERED: Sodium Chloride 0.9% 1,000 ML IV SCH (17:15)
[2022-05-13 17:58] LABS: Anion Gap 29 mmol/L (10-20); BUN (Urea Nitrogen) 24 mg/dL (8.9-20.6); CK (CPK) 204 U/L (30-200); Calc. Creatinine Clearance 0 mL/min (70-130); Calcium 9.4 mg/dL (7.8-10.44); Chloride 105 mmol/L (98-107); Estimated GFR 62; Glucose 326 mg/dL (70-105); Potassium 4.9 mmol/L (3.5-5.1); Sodium 138 mmol/L (136-145)
[2022-05-13 18:02] LABS: Carbon Dioxide 9 mmol/L (22-29)
[2022-05-13] MEDS ORDERED: Famotidine/PF 20 mg/2ml Vial ONE (20:12)
[2022-05-13] MEDS: Famotidine/PF 20 mg/2ml Vial SLOW IVP SCH (20:14)
[2022-05-13] MEDS: Benztropine 1 MG TAB PO SCH (21:05)
[2022-05-13] MEDS: D5 1/2 NS w/20 mEq KCL 1,000 ML IV PRN (21:12)
[2022-05-13 22:23] LABS: Anion Gap 16 mmol/L (10-20); BUN (Urea Nitrogen) 19 mg/dL (8.9-20.6); Calc. Creatinine Clearance 0 mL/min (70-130); Calcium 8.3 mg/dL (7.8-10.44); Carbon Dioxide 17 mmol/L (22-29); Chloride 107 mmol/L (98-107); Estimated GFR 83; Glucose 144 mg/dL (70-105); Potassium 4.4 mmol/L (3.5-5.1); Sodium 136 mmol/L (136-145)
[2022-05-14 01:02] VITALS: BMI 23.6
[2022-05-14] MEDS: D5 1/2 NS w/20 mEq KCL 1,000 ML IV PRN ×3 (01:22→09:25)
[2022-05-14 01:54] LABS: Anion Gap 11 mmol/L (10-20); BUN (Urea Nitrogen) 15 mg/dL (8.9-20.6); Calc. Creatinine Clearance 98 mL/min (70-130); Calcium 7.9 mg/dL (7.8-10.44); Carbon Dioxide 19 mmol/L (22-29); Chloride 107 mmol/L (98-107); Estimated GFR 93; Glucose 190 mg/dL (70-105); Potassium 3.6 mmol/L (3.5-5.1); Sodium 133 mmol/L (136-145)
[2022-05-14 04:23] LABS: #Basophils 0.1 thou/uL (0.0-0.2); #Eosinphils 0.3 thou/uL (0.0-0.7); #Monocytes 1.3 thou/uL (0.11-0.59); #Neutrophils 6.5 thou/uL (1.40-6.50); %Basophils 0.6 % (0.0-1.0); %Eosinophils 2.5 % (0.0-10.0); %Lymphocytes 32.6 % (21.0-51.0); %Monocytes 10.8 % (0.0-10.0); %Neutrophils 53.5 % (42.0-75.0); Hemoglobin 12.1 g/dL (14.0-18.0); Mean Corpuscular HGB CONC 32.9 g/dL (32.0-36.0); Mean Corpuscular Hemoglobin 30.1 pg (27.0-31.0); Mean Corpuscular Volume 91.4 fL (78.0-98.0); Mean Platelet Volume 7.3 fL (7.4-10.4); Platelet Count 346 thou/uL (130-400); RBC Distribution Width 14.5 % (11.5-14.5); Red Blood Cell (RBC) Count 4.01 mill/uL (4.70-6.10); White Blood Cell (WBC) Count 12.2 thou/uL (4.8-10.8)
[2022-05-14 04:25] LABS: Hemoglobin A1c Greater than 14.0 % (4.0-6.0)
[2022-05-14 04:46] LABS: ALT (SGPT) 424 U/L (8-55); AST (SGOT) 245 U/L (5-34); Albumin 2.9 g/dL (3.5-5.0); Alkaline Phosphatase 237 U/L (40-110); Anion Gap 10 mmol/L (10-20); BUN (Urea Nitrogen) 13 mg/dL (8.9-20.6); Bilirubin, Total 1.2 mg/dL (0.2-1.2); Calc. Creatinine Clearance 104 mL/min (70-130); Carbon Dioxide 20 mmol/L (22-29); Chloride 108 mmol/L (98-107); Estimated GFR 100; Globulin 2.3 g/dL (2.4-3.5); Glucose 144 mg/dL (70-105); Potassium 3.4 mmol/L (3.5-5.1); Protein, Total 5.2 g/dL (6.0-8.3); Sodium 135 mmol/L (136-145)
[2022-05-14] MEDS: Potassium Chloride 20 MEQ in Premix Bag 1 BAG IVPB SCH ×2 (06:28→09:25)
[2022-05-14] MEDS ORDERED: Magnesium 2 GM/50 ML(in water) 2 GM in Premix Bag 1 BAG IVPB SCH (08:00)
[2022-05-14] MEDS: Enoxaparin Sodium 40 MG/0.4 ML SYRINGE SC SCH (09:26)
[2022-05-14] MEDS: Famotidine/PF 20 mg/2ml Vial SLOW IVP SCH ×2 (09:27→20:18)
[2022-05-14 10:36] LABS: ALT (SGPT) 473 U/L (8-55); AST (SGOT) 334 U/L (5-34); Albumin 3.2 g/dL (3.5-5.0); Alkaline Phosphatase 261 U/L (40-110); Anion Gap 13 mmol/L (10-20); BUN (Urea Nitrogen) 11 mg/dL (8.9-20.6); Bilirubin, Total 1.6 mg/dL (0.2-1.2); Calc. Creatinine Clearance 105 mL/min (70-130); Calcium 8.3 mg/dL (7.8-10.44); Carbon Dioxide 17 mmol/L (22-29); Chloride 106 mmol/L (98-107); Estimated GFR 101; Globulin 2.6 g/dL (2.4-3.5); Glucose 234 mg/dL (70-105); Magnesium 2.3 mg/dL (1.6-2.6); Potassium 4.3 mmol/L (3.5-5.1); Protein, Total 5.8 g/dL (6.0-8.3); Sodium 132 mmol/L (136-145)
[2022-05-14] MEDS ORDERED: Dextrose 5% in Water 1,000 ML IV PRN (11:57)
[2022-05-14] MEDS ORDERED: Dextrose 50% Abboject 50 ML SYRINGE SLOW IVP PRN (11:57)
[2022-05-14] MEDS ORDERED: HumaLOG 300 UNITS/3 ML VIAL SC PRN (11:57)
[2022-05-14] MEDS ORDERED: Non-Formulary Item 1 EACH (Insulin Degludec [Tresiba Flextouch U-200] 200 UNIT/ML Insuln. SQ SCH (11:59)
[2022-05-14] MEDS ORDERED: INSULIN DEGLUDEC 25 UNIT SQ SCH (12:00)
[2022-05-14] MEDS ORDERED: Sodium Bicarb 50 MEQ/50 ML Abboject 8.4% SYRINGE IVP SCH (12:00)
[2022-05-14] MEDS ORDERED: Insulin Glargine 30 UNITS/0.3 ML VIAL SC SCH ×2 (12:45→21:00)
[2022-05-14] MEDS: Sodium Chloride 0.9% 1,000 ML IV SCH ×2 (13:51→18:21)
[2022-05-14] MEDS: Benztropine 1 MG TAB PO SCH (20:18)
[2022-05-14] MEDS: Insulin Glargine 30 UNITS/0.3 ML VIAL SC SCH (20:18)
[2022-05-14] MEDS: HumaLOG 300 UNITS/3 ML VIAL SC PRN (21:10)
[2022-05-14 21:40] LABS: Anion Gap 14 mmol/L (10-20); BUN (Urea Nitrogen) 11 mg/dL (8.9-20.6); Calc. Creatinine Clearance 103 mL/min (70-130); Calcium 8.2 mg/dL (7.8-10.44); Carbon Dioxide 18 mmol/L (22-29); Chloride 102 mmol/L (98-107); Estimated GFR 99; Glucose 498 mg/dL (70-105); Potassium 4.7 mmol/L (3.5-5.1); Sodium 129 mmol/L (136-145)
[2022-05-15 01:41] LABS: Bacteria/HPF None Seen HPF (None Seen); Bilirubin Negative (Negative); Blood, Urine Negative (Negative); Clarity Clear (Clear); Glucose, Urine (Dipstick) Greater than 1000 mg/dL (Negative); Ketone, Urine Trace mg/dL (Negative); Leukocyte Negative Leu/uL (Negative); Nitrite Negative (Negative); Protein, Urine (Dipstick) Negative (Neg-Trace); RBC/HPF 0-3 HPF (0-3); Specific Gravity, Urine 1.031 (1.002-1.036); Squamous Epithelial None Seen HPF (0-3); Urobilinogen Normal mg/dL (Less than 2); WBC/HPF 0-3 HPF (0-3); pH, Urine 5.5 (5.0-9.0)
[2022-05-15 04:28] LABS: ALT (SGPT) 364 U/L (8-55); AST (SGOT) 237 U/L (5-34); Albumin 2.6 g/dL (3.5-5.0); Alkaline Phosphatase 217 U/L (40-110); Anion Gap 8 mmol/L (10-20); BUN (Urea Nitrogen) 9 mg/dL (8.9-20.6); Bilirubin, Total 1.2 mg/dL (0.2-1.2); Calc. Creatinine Clearance 134 mL/min (70-130); Calcium 7.9 mg/dL (7.8-10.44); Carbon Dioxide 24 mmol/L (22-29); Chloride 109 mmol/L (98-107); Estimated GFR 126; Globulin 2.4 g/dL (2.4-3.5); Glucose 120 mg/dL (70-105); Magnesium 1.7 mg/dL (1.6-2.6); Potassium 3.3 mmol/L (3.5-5.1); Sodium 138 mmol/L (136-145)
[2022-05-15 04:54] LABS: Band 1 % (5-11); Eosinophils 2 % (0-10); Hemoglobin 12.4 g/dL (14.0-18.0); Lymphocytes 44 % (21-51); MDiff Complete? YES; Mean Corpuscular HGB CONC 35.5 g/dL (32.0-36.0); Mean Corpuscular Hemoglobin 32.7 pg (27.0-31.0); Mean Corpuscular Volume 92.2 fL (78.0-98.0); Mean Platelet Volume 7.1 fL (7.4-10.4); Monocytes 5 % (0-10); Neutrophil 36 % (42-75); Platelet Count 328 thou/uL (130-400); RBC Distribution Width 14.5 % (11.5-14.5); Reactive Lymphocytes 12 % (0-10); Red Blood Cell (RBC) Count 3.78 mill/uL (4.70-6.10); White Blood Cell (WBC) Count 7.9 thou/uL (4.8-10.8)
[2022-05-15] MEDS: Sodium Chloride 0.9% 1,000 ML IV SCH ×3 (05:31→13:23)
[2022-05-15] MEDS ORDERED: Magnesium 2 GM/50 ML(in water) 2 GM in Premix Bag 1 BAG IVPB SCH (05:45)
[2022-05-15] MEDS: Potassium Chloride 20 MEQ in Premix Bag 1 BAG IVPB SCH ×2 (06:07→09:23)
[2022-05-15] MEDS: Famotidine/PF 20 mg/2ml Vial SLOW IVP SCH ×2 (09:23→20:17)
[2022-05-15] MEDS: Insulin Glargine 30 UNITS/0.3 ML VIAL SC SCH ×2 (09:24→20:18)
[2022-05-15] MEDS: Enoxaparin Sodium 40 MG/0.4 ML SYRINGE SC SCH (09:24)
[2022-05-15] MEDS ORDERED: Magnesium Sulfate 3 GM in Sodium Chloride 0.9% 100 ML IVPB SCH (09:45)
[2022-05-15] MEDS ORDERED: Potassium Chloride 20 MEQ TAB PO SCH ×2 (10:00→18:00)
[2022-05-15] MEDS: Lactated Ringer's 1,000 ML IV SCH ×2 (14:15→23:25)
[2022-05-15] MEDS: Benztropine 1 MG TAB PO SCH (20:18)
[2022-05-16 06:34] LABS: ALT (SGPT) 364 U/L (8-55); AST (SGOT) 411 U/L (5-34); Albumin 2.8 g/dL (3.5-5.0); Alkaline Phosphatase 219 U/L (40-110); Anion Gap 9 mmol/L (10-20); BUN (Urea Nitrogen) 6 mg/dL (8.9-20.6); Bilirubin, Total 1.5 mg/dL (0.2-1.2); Calc. Creatinine Clearance 157 mL/min (70-130); Calcium 8.5 mg/dL (7.8-10.44); Carbon Dioxide 26 mmol/L (22-29); Chloride 107 mmol/L (98-107); Estimated GFR 131; Globulin 2.4 g/dL (2.4-3.5); Magnesium 1.7 mg/dL (1.6-2.6); Potassium 3.3 mmol/L (3.5-5.1); Protein, Total 5.2 g/dL (6.0-8.3); Sodium 139 mmol/L (136-145)
[2022-05-16 06:39] LABS: Glucose 52 mg/dL (70-105)
[2022-05-16 07:03] LABS: Hemoglobin 12.6 g/dL (14.0-18.0); Mean Corpuscular Hemoglobin 29.3 pg (27.0-31.0); Mean Corpuscular Volume 91.6 fL (78.0-98.0); Mean Platelet Volume 7.2 fL (7.4-10.4); Platelet Count 355 thou/uL (130-400); RBC Distribution Width 14.2 % (11.5-14.5); White Blood Cell (WBC) Count 5.9 thou/uL (4.8-10.8)
[2022-05-16 07:04] LABS: Band 3 % (5-11); Eosinophils 2 % (0-10); Lymphocytes 48 % (21-51); MDiff Complete? YES; Monocytes 8 % (0-10); Myelocyte 1 % (0-0); Neutrophil 37 % (42-75)
[2022-05-16] MEDS ORDERED: Potassium Chloride 20 MEQ TAB PO SCH ×2 (08:00→18:00)
[2022-05-16] MEDS: Magnesium 2 GM/50 ML(in water) 2 GM in Premix Bag 1 BAG IVPB SCH ×2 (08:49→10:23)
[2022-05-16] MEDS: Potassium Chloride 20 MEQ TAB PO SCH ×2 (08:50→22:39)
[2022-05-16] MEDS: Famotidine/PF 20 mg/2ml Vial SLOW IVP SCH ×2 (08:52→10:22)
[2022-05-16] MEDS: Enoxaparin Sodium 40 MG/0.4 ML SYRINGE SC SCH (08:54)
[2022-05-16] MEDS: Insulin Glargine 30 UNITS/0.3 ML VIAL SC SCH (09:08)
[2022-05-16] MEDS: Lactated Ringer's 1,000 ML IV SCH (10:15)
[2022-05-16] MEDS: HumaLOG 300 UNITS/3 ML VIAL SC PRN (12:04)
[2022-05-16] MEDS ORDERED: Insulin Glargine 30 UNITS/0.3 ML VIAL SC SCH (21:00)
[2022-05-16] MEDS: Benztropine 1 MG TAB PO SCH (22:39)
[2022-05-17] MEDS: HumaLOG 300 UNITS/3 ML VIAL SC PRN ×2 (07:06→17:51)
[2022-05-17 07:37] LABS: ALT (SGPT) 481 U/L (8-55); AST (SGOT) 560 U/L (5-34); Albumin 3.1 g/dL (3.5-5.0); Alkaline Phosphatase 250 U/L (40-110); Anion Gap 13 mmol/L (10-20); BUN (Urea Nitrogen) 10 mg/dL (8.9-20.6); Bilirubin, Total 1.1 mg/dL (0.2-1.2); Calc. Creatinine Clearance 136 mL/min (70-130); Calcium 8.9 mg/dL (7.8-10.44); Carbon Dioxide 24 mmol/L (22-29); Chloride 104 mmol/L (98-107); Estimated GFR 125; Globulin 2.8 g/dL (2.4-3.5); Glucose 267 mg/dL (70-105); Iron 149 ug/dL (65-175); Iron Binding Capacity, Total 216 mcg/dL (261-462); Potassium 4.2 mmol/L (3.5-5.1); Protein, Total 5.9 g/dL (6.0-8.3); Sodium 137 mmol/L (136-145)
[2022-05-17] MEDS: Enoxaparin Sodium 40 MG/0.4 ML SYRINGE SC SCH (08:09)
[2022-05-17] MEDS: Potassium Chloride 20 MEQ TAB PO SCH ×2 (08:09→20:10)
[2022-05-17] MEDS: Insulin Glargine 30 UNITS/0.3 ML VIAL SC SCH (08:10)
[2022-05-17] MEDS: Benztropine 1 MG TAB PO SCH (20:11)
[2022-05-17] MEDS ORDERED: Insulin Glargine 30 UNITS/0.3 ML VIAL SC SCH (21:00)
[2022-05-18 07:15] LABS: Hemoglobin 13.1 g/dL (14.0-18.0); Mean Corpuscular HGB CONC 31.3 g/dL (32.0-36.0); Mean Corpuscular Volume 92.5 fL (78.0-98.0); Mean Platelet Volume 7.6 fL (7.4-10.4); Platelet Count 372 thou/uL (130-400); RBC Distribution Width 14.2 % (11.5-14.5); Red Blood Cell (RBC) Count 4.51 mill/uL (4.70-6.10); White Blood Cell (WBC) Count 8.1 thou/uL (4.8-10.8)
[2022-05-18 07:20] LABS: INR-International Normal Ratio 0.9; Prothrombin Time 12.2 sec (12.0-14.7)
[2022-05-18 07:36] LABS: ALT (SGPT) 475 U/L (8-55); AST (SGOT) 512 U/L (5-34); Alkaline Phosphatase 232 U/L (40-110); Bilirubin, Direct 0.3 mg/dL (0.1-0.3); Bilirubin, Total 1.1 mg/dL (0.2-1.2); Protein, Total 5.6 g/dL (6.0-8.3)
[2022-05-18 07:37] LABS: ALT (SGPT) 474 U/L (8-55); AST (SGOT) 517 U/L (5-34); Alkaline Phosphatase 231 U/L (40-110); Anion Gap 10 mmol/L (10-20); BUN (Urea Nitrogen) 12 mg/dL (8.9-20.6); Bilirubin, Total 1.1 mg/dL (0.2-1.2); Calc. Creatinine Clearance 161 mL/min (70-130); Calcium 8.7 mg/dL (7.8-10.44); Carbon Dioxide 25 mmol/L (22-29); Chloride 106 mmol/L (98-107); Estimated GFR 132; Globulin 2.6 g/dL (2.4-3.5); Potassium 3.9 mmol/L (3.5-5.1); Protein, Total 5.6 g/dL (6.0-8.3); Sodium 137 mmol/L (136-145)
[2022-05-18 07:41] LABS: Glucose 56 mg/dL (70-105)
[2022-05-18] MEDS: Enoxaparin Sodium 40 MG/0.4 ML SYRINGE SC SCH (08:05)
[2022-05-18] MEDS: Potassium Chloride 20 MEQ TAB PO SCH (08:05)
[2022-05-18] MEDS: Insulin Glargine 30 UNITS/0.3 ML VIAL SC SCH (08:06)
[2022-05-18 09:51] LABS: Eosinophils 1 % (0-10); Lymphocytes 54 % (21-51); MDiff Complete? YES; Monocytes 3 % (0-10); Neutrophil 39 % (42-75); RBC Morphology Normal; Reactive Lymphocytes 3 % (0-10)
[2022-05-18] MEDS: HumaLOG 300 UNITS/3 ML VIAL SC PRN (12:57)
[2022-05-18 13:39] LABS: ANA Symphony (Qualitative) Negative (Negative); ANA Symphony (Quantitative) 0.1 Ratio (< 0.7 Negative); dsDNA IgG Antibody 0.5 IU/mL (<10 Negative)
[2022-05-18 13:40] LABS: EliA Vaculitis New Method **** NEW METHOD ****; Mitochondrial Ab 1.1 U/mL (<4 Negative)
[2022-05-18] MEDS: Benztropine 1 MG TAB PO SCH (20:14)
[2022-05-18] MEDS ORDERED: Insulin Glargine 30 UNITS/0.3 ML VIAL SC SCH (21:00)
[2022-05-19] MEDS: HumaLOG 300 UNITS/3 ML VIAL SC PRN ×2 (05:38→12:49)
[2022-05-19 06:58] LABS: ALT (SGPT) 432 U/L (8-55); AST (SGOT) 362 U/L (5-34); Alkaline Phosphatase 241 U/L (40-110); Anion Gap 13 mmol/L (10-20); BUN (Urea Nitrogen) 14 mg/dL (8.9-20.6); Bilirubin, Total 0.8 mg/dL (0.2-1.2); CK (CPK) 83 U/L (30-200); Calc. Creatinine Clearance 151 mL/min (70-130); Calcium 9.1 mg/dL (7.8-10.44); Carbon Dioxide 24 mmol/L (22-29); Chloride 105 mmol/L (98-107); Estimated GFR 129; Globulin 2.7 g/dL (2.4-3.5); Glucose 115 mg/dL (70-105); Potassium 3.8 mmol/L (3.5-5.1); Protein, Total 5.7 g/dL (6.0-8.3); Sodium 138 mmol/L (136-145)
[2022-05-19] MEDS: Enoxaparin Sodium 40 MG/0.4 ML SYRINGE SC SCH (08:45)
[2022-05-19] MEDS: Insulin Glargine 30 UNITS/0.3 ML VIAL SC SCH (08:46)
[2022-05-19] MEDS ORDERED: HumaLOG 300 UNITS/3 ML VIAL SC PRN (12:56)
[2022-05-19] MEDS ORDERED: Dextrose 50% Abboject 50 ML SYRINGE SLOW IVP PRN (12:56)
[2022-05-19] MEDS: Benztropine 1 MG TAB PO SCH (20:50)
[2022-05-19] MEDS ORDERED: Insulin Glargine 30 UNITS/0.3 ML VIAL SC SCH (21:00)
[2022-05-20 06:44] LABS: ALT (SGPT) 379 U/L (8-55); AST (SGOT) 327 U/L (5-34); Albumin 2.9 g/dL (3.5-5.0); Alkaline Phosphatase 213 U/L (40-110); Anion Gap 12 mmol/L (10-20); BUN (Urea Nitrogen) 12 mg/dL (8.9-20.6); Bilirubin, Total 0.7 mg/dL (0.2-1.2); Calc. Creatinine Clearance 135 mL/min (70-130); Calcium 8.7 mg/dL (7.8-10.44); Carbon Dioxide 26 mmol/L (22-29); Chloride 106 mmol/L (98-107); Estimated GFR 125; Globulin 2.3 g/dL (2.4-3.5); Glucose 106 mg/dL (70-105); Potassium 3.3 mmol/L (3.5-5.1); Protein, Total 5.2 g/dL (6.0-8.3); Sodium 141 mmol/L (136-145)
[2022-05-20 08:08] VITALS: BP 106/60; TEMP 97.9
[2022-05-20] MEDS: Enoxaparin Sodium 40 MG/0.4 ML SYRINGE SC SCH (08:32)
[2022-05-20] MEDS: Insulin Glargine 30 UNITS/0.3 ML VIAL SC SCH (08:32)
[2022-05-20] MEDS ORDERED: Insulin Glargine 30 UNITS/0.3 ML VIAL SC SCH (09:00)
[2022-05-20] MEDS: Potassium Chloride 20 MEQ TAB PO SCH ×2 (09:14→11:05)
== END 2022-05-20 14:15 | disposition home or self-care (01) | DRG 638 ==
LOC: ERS 14:42 → ERHOLD 17:09 → IMCU/EMU 23:02 → T4-B 05-15 12:19
PROVIDERS: ADMIT Internal Medicine; ATTEND Internal Medicine
DX: E10.10 Type 1 diabetes mellitus with ketoacidosis without coma (principal); N17.9 Acute kidney failure, unspecified; J45.909 Unspecified asthma, uncomplicated; F31.9 Bipolar disorder, unspecified; E87.5 Hyperkalemia; F20.9 Schizophrenia, unspecified; E87.6 Hypokalemia; Z20.822 Contact with and (suspected) exposure to COVID-19; E86.0 Dehydration; Z79.51 Long term (current) use of inhaled steroids; Z79.4 Long term (current) use of insulin; Z79.899 Other long term (current) drug therapy; Z91.14 Patient's other noncompliance with medication regimen
CPT/HCPCS: 36415; 36416; 76705; 80048; 80053; 81001; 81256; 82010; 82103; 82390; 82550; 82728; 82805; 83036; 83516; 83540; 83550; 83735; 84100; 85025; 85610; 86015; 86038; 86225; 93005; 96374; J1650; J1815; J3475; J3480; J7050; J7120; S0028; U0003; U0005

== ENCOUNTER 2024-09-29 10:53 | Inpatient (IN) | payer OTHER ==
[2024-09-29 11:33] LABS: Analyzer IN Cardio ER; Base Excess -20.4 mEq/L (-2.0 to +3.0); Chloride (VBG) 99 mmol/L (98-106); Hematocrit-VBG 49 % (42.0-52.0); Hemoglobin (Hb) 16.7 g/dL (13.2-17.3); Potassium (VBG) 5.06 mmol/L (3.70-5.30); Sodium 137 mmol/L (133-146)
[2024-09-29 11:34] LABS: Actual Bicarbonate (HCO3v) 6.7 mEq/L (22-28); pH (venous) 7.128 (7.32-7.43)
[2024-09-29 12:11] LABS: ALT (SGPT) 57 U/L (Less than 45); AST (SGOT) 38 U/L (11-34); Albumin 3.9 g/dL (3.1-4.5); Alkaline Phosphatase 122 U/L (40-110); Anion Gap 34 mmol/L (10-20); BUN (Urea Nitrogen) 23 mg/dL (8.9-20.6); Bilirubin, Total 0.6 mg/dL (0.3-1.2); CK (CPK) 155 U/L (30-200); Calc. Creatinine Clearance 0 mL/min (70-130); Carbon Dioxide Less than 8 mmol/L (22-29); Chloride 100 mmol/L (98-107); Estimated GFR 50; Globulin 3.1 g/dL (2.4-3.5); Glucose 459 mg/dL (70-105); Potassium 5.5 mmol/L (3.5-5.1); Sodium 133 mmol/L (136-145)
[2024-09-29 12:56] LABS: Bilirubin Negative (Negative); Blood, Urine Negative (Negative); CAUTI Indications for Culture Dysuria,urgency,freq; Clarity Clear (Clear); Glucose, Urine (Dipstick) Greater than 1000 mg/dL (Negative); Ketone, Urine Greater than 150 mg/dL (Negative); Leukocyte Negative Leu/uL (Negative); Nitrite Negative (Negative); Protein, Urine (Dipstick) 10 mg/dL (Neg-Trace); RBC/HPF None Seen HPF (0-3); Specific Gravity, Urine 1.017 (1.002-1.036); Squamous Epithelial 0-3 HPF (0-3); Urobilinogen Normal mg/dL (Less than 2); WBC/HPF 0-3 HPF (0-3)
[2024-09-29 12:57] LABS: Bacteria/HPF Rare-Few HPF (None Seen)
[2024-09-29 12:58] LABS: Urine Culture Reflex No No
[2024-09-29] MEDS ORDERED: Sodium Chloride 0.9% 1,000 ML IV PRN ×4 (13:03)
[2024-09-29] MEDS ORDERED: Electrolyte Replacement Protocol 1 EACH IVPB PRN (13:03)
[2024-09-29] MEDS ORDERED: Dextrose 5 %-0.45 % NaCl 1,000 ML IV PRN (13:03)
[2024-09-29] MEDS ORDERED: Bisacodyl 5 MG TAB PO PRN (13:03)
[2024-09-29] MEDS ORDERED: traMADol HCl 50 MG TAB PO PRN (13:03)
[2024-09-29] MEDS ORDERED: Ondansetron PF 4 MG/2 ML Vial IVP PRN (13:03)
[2024-09-29] MEDS ORDERED: NS 0.9% w/ 20 MEQ KCL 1,000 ML IV PRN ×2 (13:03)
[2024-09-29 14:42] LABS: Lactic Acid 2.17 mmol/L (0.50-2.20)
[2024-09-29 14:47] LABS: Anion Gap 28 mmol/L (10-20); BUN (Urea Nitrogen) 18 mg/dL (8.9-20.6); Calc. Creatinine Clearance 0 mL/min (70-130); Calcium 8.4 mg/dL (7.8-10.44); Carbon Dioxide Less than 8 mmol/L (22-29); Chloride 106 mmol/L (98-107); Estimated GFR 61; Glucose 282 mg/dL (70-105); Potassium 4.5 mmol/L (3.5-5.1); Sodium 134 mmol/L (136-145)
[2024-09-29 14:53] VITALS: BMI 24.0
[2024-09-29] MEDS: D5 1/2 NS w/20 mEq KCL 1,000 ML IV PRN (17:25)
[2024-09-29] MEDS: Piperacillin/Tazobactam 3.375 GM in Sodium Chloride 0.9% 100 ML IVPB SCH ×2 (17:25→18:26)
[2024-09-29] MEDS: INSULIN REGULAR IN 0.9 % NACL 100 ML IVPB SCH (18:27)
[2024-09-29 20:23] LABS: Anion Gap 13 mmol/L (10-20); BUN (Urea Nitrogen) 15 mg/dL (8.9-20.6); Calc. Creatinine Clearance 93 mL/min (70-130); Carbon Dioxide 15 mmol/L (22-29); Chloride 112 mmol/L (98-107); Estimated GFR 86; Glucose 150 mg/dL (70-105); Potassium 3.8 mmol/L (3.5-5.1); Sodium 136 mmol/L (136-145)
[2024-09-30 00:37] LABS: Anion Gap 10 mmol/L (10-20); BUN (Urea Nitrogen) 13 mg/dL (8.9-20.6); Calc. Creatinine Clearance 89 mL/min (70-130); Calcium 8.5 mg/dL (7.8-10.44); Carbon Dioxide 19 mmol/L (22-29); Chloride 112 mmol/L (98-107); Estimated GFR 82; Glucose 57 mg/dL (70-105); Potassium 3.4 mmol/L (3.5-5.1); Sodium 138 mmol/L (136-145)
[2024-09-30] MEDS: Dextrose 50% Abboject 50 ML SYRINGE SLOW IVP PRN (00:40)
[2024-09-30 05:41] LABS: #Basophils 0.04 10x3/uL (0.0-0.2); #Eosinophils Less than 0.03 10x3/uL (0.0-0.7); %Basophils 0.3 % (0.0-1.0); %Eosinophils 0.1 % (0.0-10.0); %Lymphocytes 11.7 % (21.0-51.0); %Monocytes 10.2 % (0.0-10.0); %Neutrophils 75.9 % (42.0-75.0); Hematocrit 37.7 % (42.0-52.0); Mean Corpuscular HGB CONC 34.5 g/dL (32.0-36.0); Mean Corpuscular Hemoglobin 29.1 pg (27.0-31.0); Mean Corpuscular Volume 84.3 fL (78.0-98.0); Mean Platelet Volume 10.6 fL (7.4-10.4); Platelet Count 259 10x3/uL (130-400); RBC Distribution Width 13.2 % (11.5-14.5); Red Blood Cell (RBC) Count 4.47 mill/uL (4.70-6.10)
[2024-09-30 05:54] LABS: Anion Gap 9 mmol/L (10-20); BUN (Urea Nitrogen) 13 mg/dL (8.9-20.6); Calc. Creatinine Clearance 88 mL/min (70-130); Calcium 8.1 mg/dL (7.8-10.44); Carbon Dioxide 20 mmol/L (22-29); Chloride 113 mmol/L (98-107); Estimated GFR 81; Glucose 114 mg/dL (70-105); Potassium 3.4 mmol/L (3.5-5.1); Sodium 139 mmol/L (136-145)
[2024-09-30] MEDS: Potassium Chloride 20 MEQ TAB PO SCH (09:15)
[2024-09-30] MEDS: Enoxaparin 40 MG (0.4 mL) SYRINGE SC SCH (09:15)
[2024-09-30] MEDS ORDERED: Dextrose 50% Abboject 50 ML SYRINGE SLOW IVP PRN (09:44)
[2024-09-30] MEDS ORDERED: Dextrose 5% in Water 1,000 ML IV PRN (09:44)
[2024-09-30] MEDS ORDERED: Insulin Lispro 100 UNIT/ML 10 ML VIAL SC PRN (09:44)
[2024-09-30] MEDS ORDERED: Glucagon 1 MG/ML KIT IM PRN (09:44)
[2024-09-30] MEDS ORDERED: Pantoprazole 40 MG GRANULES PACKET PO SCH (09:59)
[2024-09-30] MEDS: Pantoprazole 40 MG DR.TAB PO SCH (10:48)
[2024-09-30] MEDS: Insulin Glargine 30 UNITS/0.3 ML VIAL SC SCH ×2 (10:48→20:42)
[2024-09-30] MEDS: Acetaminophen 325 MG TAB PO PRN (13:33)
[2024-09-30] MEDS: Insulin Lispro 100 UNIT/ML 10 ML VIAL SC PRN (16:27)
[2024-09-30] MEDS: traMADol HCl 50 MG TAB PO PRN (18:03)
[2024-09-30] MEDS: Benztropine 1 MG TAB PO SCH (20:41)
[2024-09-30] MEDS: OXcarbazepine 300 MG TAB PO SCH (20:42)
[2024-09-30] MEDS: Docusate 100 MG CAP PO SCH (20:42)
[2024-09-30] MEDS: Aripiprazole 15 MG TAB PO SCH (20:42)
[2024-10-01 06:02] LABS: Anion Gap 11 mmol/L (10-20); BUN (Urea Nitrogen) 8 mg/dL (8.9-20.6); Calc. Creatinine Clearance 120 mL/min (70-130); Calcium 8.3 mg/dL (7.8-10.44); Carbon Dioxide 25 mmol/L (22-29); Chloride 107 mmol/L (98-107); Estimated GFR 115; Glucose 192 mg/dL (70-105); Sodium 140 mmol/L (136-145)
[2024-10-01] MEDS ORDERED: Potassium Chloride 20 MEQ TAB PO SCH (08:00)
[2024-10-01 09:11] LABS: #Basophils 0.03 10x3/uL (0.0-0.2); %Basophils 0.3 % (0.0-1.0); %Eosinophils 1.6 % (0.0-10.0); %Lymphocytes 30.1 % (21.0-51.0); %Monocytes 6.2 % (0.0-10.0); %Neutrophils 61.2 % (42.0-75.0); Hematocrit 38.5 % (42.0-52.0); Hemoglobin 13.1 g/dL (14.0-18.0); Mean Corpuscular Volume 85.2 fL (78.0-98.0); Mean Platelet Volume 10.2 fL (7.4-10.4); Platelet Count 238 10x3/uL (130-400); RBC Distribution Width 13.6 % (11.5-14.5); Red Blood Cell (RBC) Count 4.52 mill/uL (4.70-6.10)
[2024-10-01 09:12] VITALS: TEMP 97.6
[2024-10-01] MEDS: Potassium Chloride 20 MEQ TAB PO SCH (09:25)
[2024-10-01] MEDS: Pantoprazole 40 MG DR.TAB PO SCH (09:26)
[2024-10-01] MEDS: Polyethylene Glycol 3350 17 GM Packet PO SCH (09:26)
[2024-10-01 09:32] LABS: Magnesium 1.7 mg/dL (1.6-2.6)
[2024-10-01 13:35] VITALS: BP 146/91
[2024-10-01] MEDS: Magnesium 2 GM/50 ML(in water) 2 GM in Premix 1 BAG IVPB SCH (13:57)
[2024-10-01] MEDS: FLU (Fluarix Triv) TS24-25(6MOS UP)/PF 45 MCG/0.5 ML Syringe IM ONE (14:01)
== END 2024-10-01 16:02 | disposition home or self-care (01) | DRG 638 ==
LOC: ERS 10:53 → IMCU/EMU 14:04 → T4-B 09-30 17:38
PROVIDERS: ADMIT Internal Medicine; ATTEND Internal Medicine
DX: E10.10 Type 1 diabetes mellitus with ketoacidosis without coma (principal); N17.9 Acute kidney failure, unspecified; E87.5 Hyperkalemia; F31.9 Bipolar disorder, unspecified; F20.9 Schizophrenia, unspecified; Z79.4 Long term (current) use of insulin; Z79.899 Other long term (current) drug therapy; J45.909 Unspecified asthma, uncomplicated
CPT/HCPCS: 36415; 36416; 71045; 80048; 82010; 82550; 82805; 83605; 83735; 85025; 90656; 96374; J1650; J1815; J2543; J3475; J3480; J7042; J7999